=== PATIENT | male | born 1950 | race Caucasian/White ===

== ENCOUNTER 2017-10-25 03:36 | Observation (INO) ==
--- NOTE | 2017-10-25 04:32 | Emergency Department Note ---
Disposition Clinical Impression: NSTEMI (non-ST elevated myocardial infarction), Seizure Head trauma Qualifiers: Encounter type: initial encounter Qualified Code(s): S09.90XA - Unspecified injury of head, initial encounter Disposition: Admitted As Inpatient Condition: Fair Referrals: NONE,PCP [Primary Care Provider] - Forms: ED Satisfaction Letter General Adult HPI - General Chief complaint: ED Chest Pain Stated complaint: mult complaints Time Seen by Provider: 10/25/17 03:41 Source: patient Limitations: no limitations Nursing Notes Reviewed: Yes Vital Signs Reviewed: Yes - History of Present Illness HPI Narrative: 67-year-old male presents to the emergency department with concern for left- sided chest pain started a few hours ago. Patient states that he also feels a radiating to the left arm. Patient cannot characterize the pain, however, he states it is not a stabbing type pain. Patient states he has never felt this before. Patient has past history of smoking and hyperlipidemia. Patient denies any nausea, vomiting, diaphoresis. Patient also reports having seizure-like activity yesterday. He had 2 episodes. Patient states that he has a seizure disorder and consistently takes his medications. Patient states that he has been about half a year without seizure. Patient states that he does not really remember what happened, however , he does report bruising to his left eye. Patient states he had one seizure today. Pain Scale: 10 - Related Data Home Medications Medication Instructions Recorded Confirmed Divalproex (24 HR) [Depakote ER 1,000 mg PO DAILY 06/15/16 06/15/16 (24 HR)] Previous Rx's Medication Instructions Recorded Clindamycin [Cleocin] 150 mg PO Q6HR #8 capsule 06/15/16 OxyCODONE Immed Rel [Roxicodone 5 5 mg PO Q6HR PRN #30 tablet 06/15/16 MG] Allergies Allergy/AdvReac Type Severity Reaction Status Date / Time codeine AdvReac Hives Verified 06/15/16 09:37 All systems ED: reviewed and negative except as stated. Review of Systems: As Per HPI Constitutional: Denies: fever Cardiovascular: Reports: chest pain Respiratory: Denies: cough Gastrointestinal: Denies: abdominal pain, nausea, vomiting Genitourinary: Denies: urgency, dysuria, frequency Musculoskeletal: Denies: back pain Integumentary: Denies: rash, abrasion Neurological: Denies: headache, weakness, numbness, paresthesias Psychiatric: Denies: anxiety Past Medical History - Past Medical History Medical history: Reports: COPD, hyperlipidemia, hypertension, seizures Psychiatric history: Reports: no psych history - Social History Smoking Status: Current every day smoker Smokeless Tobacco Status: No Alcohol use: Reports: occasionally Drug use: Reports: marijuana Physical Exam - General Limitations: no limitations General appearance: alert, in no apparent distress - Head Head exam: normocephalic, other (Left orbital area has ecchymosis and bruising) - Eye Eye exam: Present: EOMI. Absent: scleral icterus - ENT ENT exam: normal oropharynx, mucous membranes moist - Neck Neck exam: Present: trachea midline - Chest Chest inspection: Present: normal inspection, symmetric chest wall rise - Respiratory Respiratory exam: Present: normal lung sounds bilaterally. Absent: respiratory distress, wheezes, stridor, accessory muscle use - Cardiovascular Cardiovascular exam: Present: regular rate, normal rhythm, normal heart sounds - Abdominal Exam Abdominal exam: Present: soft, Non-Tender. Absent: distention, guarding, rebound - Extremities Exam Extremities exam: Present: full ROM, normal capillary refill. Absent: tenderness - Back Exam Back exam: Present: normal inspection, full ROM - Neurological Exam Neurological exam: Present: alert, oriented X3, CN II-XII intact - Psychiatric Psychiatric exam: Present: normal affect, normal mood - Skin Skin exam: Present: warm, dry, intact Course Vital Signs Temperature 97.6 F 10/25/17 03:38 Pulse Rate 72 10/25/17 03:38 Respiratory Rate 20 10/25/17 03:38 Blood Pressure 186/80 10/25/17 03:38 O2 Sat by Pulse Oximetry 96 10/25/17 03:38 Temperature 97.6 F 10/25/17 03:42 Pulse Rate 73 10/25/17 05:53 Respiratory Rate 16 10/25/17 05:53 Blood Pressure 163/72 10/25/17 05:53 O2 Sat by Pulse Oximetry 95 10/25/17 05:53 Oxygen Delivery Oxygen Delivery Room Air Medical Decision Making - MDM Narrative Medical decision making narrative: 67-year-old male presents to the emergency department with concern for both chest pain and seizures. Patient had elevated troponin 0.04. He had mild ST depressions of less than 0.5 mm. Patient was given aspirin here, given sublingual nitroglycerin which helped his chest pain some. Patient was hypertensive at 186/80. Chest x-ray that was obtained was normal. We also obtained a facial CT, head CT, cervical spine CT from the patient's unwitnessed fall. These are within normal limits. Cardiology was called and Dr. Cat was spoken to regarding the patient's care. He was okay with us starting low-dose heparin via ACS protocol as well as a nitroglycerin drip. This will also help out with patient's high blood pressure. Patient agreed with plan for admission. I spoke with the hospitalist and he agreed to accept the patient. We have placed seizure precautions on the patient at this time. I have Ativan IM on an as-needed basis in case the patient seizes again. Chest X-Ray 10/25/17 04:12 IMPRESSION: Negative portable chest. D/ / Holden So MD / Holden So MD Interpreting Provider: Holden So MD Cervical Spine CT 10/25/17 04:29 IMPRESSION: Spondylosis with no definite fracture. D/ / Holden So MD / Holden So MD Interpreting Provider: Holden So MD Face CT 10/25/17 04:29 IMPRESSION: Facial bones: Left facial subcutaneous soft tissue swelling without fracture. Brain: No acute intracranial abnormality. D/ / Holden So MD / Holden So MD Interpreting Provider: Holden So MD Head CT 10/25/17 04:29 IMPRESSION: Facial bones: Left facial subcutaneous soft tissue swelling without fracture. Brain: No acute intracranial abnormality. D/ / Holden So MD / Holden So MD Interpreting Provider: Holden So MD Vital Signs Temperature 97.6 F 10/25/17 03:38 Pulse Rate 72 10/25/17 03:38 Respiratory Rate 20 10/25/17 03:38 Blood Pressure 186/80 10/25/17 03:38 O2 Sat by Pulse Oximetry 96 10/25/17 03:38 Temperature 97.6 F 10/25/17 03:42 Pulse Rate 73 10/25/17 05:53 Respiratory Rate 16 10/25/17 05:53 Blood Pressure 163/72 10/25/17 05:53 O2 Sat by Pulse Oximetry 95 10/25/17 05:53 Oxygen Delivery Oxygen Delivery Room Air - Lab Data Result diagrams: 10/25/17 04:22 10/25/17 04:22 Lab Results 10/25/17 10/25/17 10/25/17 Range/Units 03:48 04:12 04:22 WBC 12.9 H (4.3-11.1) K/mcL RBC 4.70 (4.19-5.50) M/mcL Hgb 15.8 (12.9-16.9) g/dL Hct 44.5 (37.5-50.1) % MCV 94.7 (83.0-100.0) fL MCH 33.6 H (28.0-33.3) pg MCHC 35.5 (31.6-35.5) g/dL RDW 12.6 (11.5-14.5) % Plt Count 252 (140-400) K/mcL MPV 10.3 (9.4-12.4) fL Immature Gran % 0.2 (0-4) % Seg Neutrophils % 54.2 % Lymphocytes % 35.7 % Monocytes % 8.9 % Eosinophils % 0.5 % Basophils % 0.5 % Neutrophils # 7.0 (1.6-8.9) K/mcL Lymphocytes # 4.6 (0.6-4.6) K/mcL Monocytes # 1.1 (0.0-1.3) K/mcL Eosinophils # 0.1 (0.0-0.6) K/mcL Basophils # 0.1 (0.0-0.2) K/mcL PT 11.1 (9.4-12.1) Seconds INR 1.0 APTT 29.4 (26.0-36.0) Seconds D-Dimer 576 H (0-500) ng/mLFEU Sodium (136-145) mEq/L Potassium (3.5-5.1) mEq/L Chloride (98-107) mEq/L Carbon Dioxide (23-29) mEq/L BUN (8-23) mg/dL Creatinine (0.70-1.30) mg/dL Est GFR ( Amer) (> 60) Est GFR (Non-Af Amer) (> 60) BUN/Creatinine Ratio (6-26) Glucose (70-105) mg/dL Calculated Osmolality (280-300) Calcium (8.6-10.3) mg/dL Creatine Kinase (30-223) Units/L Troponin I (< 0.04) ng/mL B-Natriuretic Peptide 93 (Less than 100) pg/mL 10/25/17 Range/Units 04:22 WBC (4.3-11.1) K/mcL RBC (4.19-5.50) M/mcL Hgb (12.9-16.9) g/dL Hct (37.5-50.1) % MCV (83.0-100.0) fL MCH (28.0-33.3) pg MCHC (31.6-35.5) g/dL RDW (11.5-14.5) % Plt Count (140-400) K/mcL MPV (9.4-12.4) fL Immature Gran % (0-4) % Seg Neutrophils % % Lymphocytes % % Monocytes % % Eosinophils % % Basophils % % Neutrophils # (1.6-8.9) K/mcL Lymphocytes # (0.6-4.6) K/mcL Monocytes # (0.0-1.3) K/mcL Eosinophils # (0.0-0.6) K/mcL Basophils # (0.0-0.2) K/mcL PT (9.4-12.1) Seconds INR APTT (26.0-36.0) Seconds D-Dimer (0-500) ng/mLFEU Sodium 138 (136-145) mEq/L Potassium 4.1 (3.5-5.1) mEq/L Chloride 105 (98-107) mEq/L Carbon Dioxide 24 (23-29) mEq/L BUN 16 (8-23) mg/dL Creatinine 1.04 (0.70-1.30) mg/dL Est GFR ( Amer) > 60 (> 60) Est GFR (Non-Af Amer) > 60 (> 60) BUN/Creatinine Ratio 15 (6-26) Glucose 102 (70-105) mg/dL Calculated Osmolality 287 (280-300) Calcium 10.3 (8.6-10.3) mg/dL Creatine Kinase 188 (30-223) Units/L Troponin I 0.04 H* (< 0.04) ng/mL B-Natriuretic Peptide (Less than 100) pg/mL - Radiology Data Radiology results reviewed: Yes I reviewed the patient's radiology results. - EKG Data EKG #1 EKG attestation: Yes I reviewed and interpreted this EKG. EKG results narrative: Made T2017. 3:47 Ventricular rate 79 bpm, PA interval 169 ms, QRS duration 90 ms, QT 355 ms, QTC 389 ms, right axis deviation. Sinus rhythm with a ventricular rate of 79 bpm. There are mild ST depressions of less than 0.5 mm in the lateral leads V5 and V6. These are new from a previous electrocardiogram performed on September 03, 2015.
[2017-10-25] MEDS ORDERED: Nitroglycerin 0.4 MG TAB.SUBL SL PRN (04:47)
[2017-10-25 04:54] LABS: Basophils # 0.1 K/mcL (0.0-0.2); Basophils % 0.5 %; Eosinophils # 0.1 K/mcL (0.0-0.6); Eosinophils % 0.5 %; Hematocrit 44.5 % (37.5-50.1); Hemoglobin 15.8 g/dL (12.9-16.9); Immature Granulocytes % 0.2 % (0-4); Lymphocytes # 4.6 K/mcL (0.6-4.6); Lymphocytes % 35.7 %; Mean Corpuscular HGB Conc 35.5 g/dL (31.6-35.5); Mean Corpuscular Hemoglobin 33.6 pg (28.0-33.3); Mean Corpuscular Volume 94.7 fL (83.0-100.0); Mean Platelet Volume 10.3 fL (9.4-12.4); Monocytes # 1.1 K/mcL (0.0-1.3); Monocytes % 8.9 %; Platelet Count 252 K/mcL (140-400); Red Cell Distribution Width 12.6 % (11.5-14.5); Segmented Neutrophils % 54.2 %
[2017-10-25 04:59] LABS: Prothrombin Time 11.1 Seconds (9.4-12.1)
[2017-10-25 05:03] LABS: Activated Partial Thrombo Time 29.4 Seconds (26.0-36.0)
[2017-10-25 05:10] LABS: BUN/Creatinine Ratio 15 (6-26); Blood Urea Nitrogen 16 mg/dL (8-23); Calcium 10.3 mg/dL (8.6-10.3); Carbon Dioxide 24 mEq/L (23-29); Chloride 105 mEq/L (98-107); Glucose 102 mg/dL (70-105); Osmolality,Calculated 287 (280-300); Potassium 4.1 mEq/L (3.5-5.1); Sodium 138 mEq/L (136-145); eGFR For African Americans > 60 (> 60); eGFR For Non-African Americans > 60 (> 60)
[2017-10-25 05:18] LABS: Creatine Kinase 188 Units/L (30-223)
[2017-10-25 05:24] LABS: Troponin I 0.04 ng/mL (< 0.04)
[2017-10-25] MEDS ORDERED: Aspirin 325 MG TABLET PO ONE (05:27)
[2017-10-25] MEDS ORDERED: *HR* Heparin 5,000 UNIT/ML VIAL IVP PRN ×2 (05:30)
[2017-10-25] MEDS ORDERED: Heparin 25,000 UNIT/500 ML D5W 25,000 UNIT/500 ML BAG IVC SCH (05:30)
[2017-10-25] MEDS ORDERED: *HR* Heparin 5,000 UNIT/ML VIAL IVP ONE (05:30)
[2017-10-25] MEDS ORDERED: Nitroglycerin 25 MG/250 ML INFUS..BTL IVC SCH (05:45)
[2017-10-25] MEDS ORDERED: *HR* LORazepam 2 MG/ML VIAL IVP PRN (06:05)
[2017-10-25 06:20] LABS: Hematocrit 41.6 % (37.5-50.1); Hemoglobin 14.7 g/dL (12.9-16.9); Mean Corpuscular HGB Conc 35.3 g/dL (31.6-35.5); Mean Corpuscular Hemoglobin 33.4 pg (28.0-33.3); Mean Corpuscular Volume 94.5 fL (83.0-100.0); Mean Platelet Volume 10.1 fL (9.4-12.4); Platelet Count 233 K/mcL (140-400); Red Cell Distribution Width 12.5 % (11.5-14.5)
[2017-10-25 06:29] LABS: INR 1.1; Prothrombin Time 11.9 Seconds (9.4-12.1)
--- NOTE | 2017-10-25 06:42 | Emergency Department Note ---
Disposition Clinical Impression: NSTEMI (non-ST elevated myocardial infarction), Seizure Head trauma Qualifiers: Encounter type: initial encounter Qualified Code(s): S09.90XA - Unspecified injury of head, initial encounter Disposition: Admitted As Inpatient Condition: Fair Referrals: NONE,PCP [Primary Care Provider] - General Adult HPI - General Chief complaint: ED Chest Pain Stated complaint: mult complaints Time Seen by Provider: 10/25/17 03:41 Source: patient Limitations: no limitations Nursing Notes Reviewed: Yes Vital Signs Reviewed: Yes - History of Present Illness Pain Scale: 2 - Related Data Home Medications Medication Instructions Recorded Confirmed Divalproex (24 HR) [Depakote ER 1,000 mg PO DAILY 06/15/16 06/15/16 (24 HR)] Allergies Allergy/AdvReac Type Severity Reaction Status Date / Time codeine AdvReac Hives Verified 06/15/16 09:37 Constitutional: Denies: fever Cardiovascular: Reports: chest pain Respiratory: Denies: cough Gastrointestinal: Denies: abdominal pain, nausea, vomiting Genitourinary: Denies: urgency, dysuria, frequency Musculoskeletal: Denies: back pain Integumentary: Denies: rash, abrasion Neurological: Denies: headache, weakness, numbness, paresthesias Psychiatric: Denies: anxiety Past Medical History - Past Medical History Medical history: Reports: COPD, hyperlipidemia, hypertension, seizures Psychiatric history: Reports: no psych history - Social History Smoking Status: Current every day smoker Smokeless Tobacco Status: No Alcohol use: Reports: occasionally Drug use: Reports: marijuana Physical Exam - General Limitations: no limitations General appearance: alert, in no apparent distress Course Vital Signs Temperature 97.6 F 10/25/17 03:38 Pulse Rate 72 10/25/17 03:38 Respiratory Rate 20 10/25/17 03:38 Blood Pressure 186/80 10/25/17 03:38 O2 Sat by Pulse Oximetry 96 10/25/17 03:38 Temperature 97.6 F 10/25/17 03:42 Pulse Rate 73 10/25/17 05:53 Respiratory Rate 20 10/25/17 06:27 Blood Pressure 149/80 10/25/17 06:27 O2 Sat by Pulse Oximetry 95 10/25/17 05:53 Oxygen Delivery Oxygen Delivery Room Air Medical Decision Making - Lab Data Result diagrams: 10/25/17 06:03 10/25/17 04:22 Lab Results 10/25/17 10/25/17 10/25/17 Range/Units 03:48 04:12 04:22 WBC 12.9 H (4.3-11.1) K/mcL RBC 4.70 (4.19-5.50) M/mcL Hgb 15.8 (12.9-16.9) g/dL Hct 44.5 (37.5-50.1) % MCV 94.7 (83.0-100.0) fL MCH 33.6 H (28.0-33.3) pg MCHC 35.5 (31.6-35.5) g/dL RDW 12.6 (11.5-14.5) % Plt Count 252 (140-400) K/mcL MPV 10.3 (9.4-12.4) fL Immature Gran % 0.2 (0-4) % Seg Neutrophils % 54.2 % Lymphocytes % 35.7 % Monocytes % 8.9 % Eosinophils % 0.5 % Basophils % 0.5 % Neutrophils # 7.0 (1.6-8.9) K/mcL Lymphocytes # 4.6 (0.6-4.6) K/mcL Monocytes # 1.1 (0.0-1.3) K/mcL Eosinophils # 0.1 (0.0-0.6) K/mcL Basophils # 0.1 (0.0-0.2) K/mcL PT 11.1 (9.4-12.1) Seconds INR 1.0 APTT 29.4 (26.0-36.0) Seconds D-Dimer 576 H (0-500) ng/mLFEU Sodium (136-145) mEq/L Potassium (3.5-5.1) mEq/L Chloride (98-107) mEq/L Carbon Dioxide (23-29) mEq/L BUN (8-23) mg/dL Creatinine (0.70-1.30) mg/dL Est GFR ( Amer) (> 60) Est GFR (Non-Af Amer) (> 60) BUN/Creatinine Ratio (6-26) Glucose (70-105) mg/dL Calculated Osmolality (280-300) Calcium (8.6-10.3) mg/dL Creatine Kinase (30-223) Units/L Troponin I (< 0.04) ng/mL B-Natriuretic Peptide 93 (Less than 100) pg/mL 10/25/17 10/25/17 Range/Units 04:22 06:03 WBC 12.4 H (4.3-11.1) K/mcL RBC 4.40 (4.19-5.50) M/mcL Hgb 14.7 (12.9-16.9) g/dL Hct 41.6 (37.5-50.1) % MCV 94.5 (83.0-100.0) fL MCH 33.4 H (28.0-33.3) pg MCHC 35.3 (31.6-35.5) g/dL RDW 12.5 (11.5-14.5) % Plt Count 233 (140-400) K/mcL MPV 10.1 (9.4-12.4) fL Immature Gran % (0-4) % Seg Neutrophils % % Lymphocytes % % Monocytes % % Eosinophils % % Basophils % % Neutrophils # (1.6-8.9) K/mcL Lymphocytes # (0.6-4.6) K/mcL Monocytes # (0.0-1.3) K/mcL Eosinophils # (0.0-0.6) K/mcL Basophils # (0.0-0.2) K/mcL PT (9.4-12.1) Seconds INR APTT (26.0-36.0) Seconds D-Dimer (0-500) ng/mLFEU Sodium 138 (136-145) mEq/L Potassium 4.1 (3.5-5.1) mEq/L Chloride 105 (98-107) mEq/L Carbon Dioxide 24 (23-29) mEq/L BUN 16 (8-23) mg/dL Creatinine 1.04 (0.70-1.30) mg/dL Est GFR ( Amer) > 60 (> 60) Est GFR (Non-Af Amer) > 60 (> 60) BUN/Creatinine Ratio 15 (6-26) Glucose 102 (70-105) mg/dL Calculated Osmolality 287 (280-300) Calcium 10.3 (8.6-10.3) mg/dL Creatine Kinase 188 (30-223) Units/L Troponin I 0.04 H* (< 0.04) ng/mL B-Natriuretic Peptide (Less than 100) pg/mL Attestation Statement - Attestation Attestation: I, Marcelo Moreno, examined this patient and my medical decision-making was reviewed with the DIRECTOR OF DEVELOPMENT AND MARKETING/PA/Advanced Practice Nurse/Resident Physician. I agree with the documented findings, disposition and treatment plan as described except to the extent set forth below. 67-year-old male presents emergency Department for evaluation of his seizures as well as chest pain. Patient states he had been seizure-free for multiple months however he had periods of unconsciousness over the past 2-3 days. Patient is unable to recall this event surrounding his loss of consciousness. He does state that it was similar to his previous seizures in that he was incontinent of urine. Patient has multiple contusions to his face. Patient is unable to tell us the name of his seizure medication however he states he has not missed any doses. Per the medical record, he takes Depakote. Patient reports intermittent aching in the center of his chest. Initial troponin was elevated at 0.04 with negative troponins in the past. EKG shows normal sinus rhythm with rate of 79. Patient will be admitted to the hospital for further care and evaluation.
[2017-10-25 07:00] LABS: Valproate 34 mcg/mL (50-100)
[2017-10-25] MEDS ORDERED: Isovue-370 500 ML INFUS..BTL IV ONE (08:30)
[2017-10-25] MEDS ORDERED: Naloxone 0.4 MG/ML INJ IVP PRN (08:35)
[2017-10-25] MEDS ORDERED: Aspirin 325 MG TABLET PO PRN (08:41)
--- NOTE | 2017-10-25 08:57 | Internal Med History&Physical ---
Date of Encounter: 10/25/17 Time of Encounter: 08:45 Internal Medicine - H&P: HPI Chief complaint: Chest pain, seizure Admitted From: Home Plans for Post Hospital Care: Home History of present illness: Mr. Sherman is a 67 year old male with history of chronic seizure on Depakote did not see a neurologist for a while but seen here in [facility] but forgot the name, hyperlipidemia chronic smoker one and half pack per day for 50 years never had any cardiac history or evaluation in the past came to emergency room for evaluation of left-sided chest pain is started a few days ago but very mild therefore he did not be attention but it got worse a few hours before coming to ER and also radiating to the left arm. He is unable to rate the pain but describes a stabbing type in nature and not associated with nausea and lightheadedness diaphoresis vomiting shortness of breath palpitation. He also has seizure-like activity two episode yesterday but not witnessed. Patient takes Depakote and did not miss any medication . Patient had been seizure-free for multiple months however he had periods of unconsciousness associated with seizure activity in last 2 days. Because of seizure he fell and hit the head and shoulder . In the ER CT head and face and a spine with no acute finding, troponin 0.04 mildly elevated, ST depression in V5 V6 with active chest pain therefore ER physician called on-call anthropology and archeology instructor Dr. Wong and started low dose heparin protocol. Aspirin and nitroglycerin Tablet was also given and eventually started on nitro drip. ER physician called on-call hospitalists for the admission with the diagnosis of NST MN, seizure evaluation. Patient did not had any active seizure activity during my evaluation and is still no relief in chest pain rating 5 x 10 while on nitro and heparin drip. Patient is poor historian and does not remember a few things and I do not know his baseline. Patient denies fever, chills, nausea, vomiting, dizziness, short of breath, abdominal pain, urinary complaint. He has history of chronic migraine. Patient complained of left shoulder pain is started after getting hit during the fall yesterday. He has chronic left shoulder pain but now worse and also intermittent tingling but no weakness Past Med Surg Social Fam HX - Past Medical History Medical history: COPD, hyperlipidemia, hypertension, seizures Psychiatric history: no psych history - Past Surgical History Surgical History: herniorrhaphy, orthopedic, other - Social History Smoking Status: Current every day smoker Smokeless Tobacco Status: No Alcohol use: occasionally Drug use: marijuana Internal Medicine - H&P: Meds Divalproex (24 HR) [Depakote ER (24 HR)] 500 mg PO BID 06/15/16 [History] Aspirin 325 mg PO DAILY PRN 10/25/17 [History] 3 Allergy/AdvReac Type Severity Reaction Status Date / Time codeine AdvReac Hives Verified 10/25/17 06:38 All Systems PM: as documented above in the HPI. - Constitutional Vitals: Temp Pulse Resp BP Pulse Ox 98.0 F 69 20 166/75 94 10/25/17 07:45 10/25/17 08:02 10/25/17 08:02 10/25/17 08:02 10/25/17 08:02 Exam: General appearance: No acute distress, A&O X 3. Poor historian. Has slight difficulty in recalling the events Head exam: left orbital area -ecchymosis and bruising Eye exam: EOMI, PERRLA ENT exam: Moist oral mucosa Neck nontender, supple Respiratory exam: Diffuse rhonchi bilaterally(questionable COPD history but does not take any breathing treatment) Cardiovascular exam: Regular rate and rhythm, no systolic murmur Abdominal exam: Soft, nontender, nondistended, positive bowel sounds Extremities exam: No calf tenderness, no pedal edema Present. Motor 5 x 5 in all 4 extremities. Slight tender left shoulder anteriorly. Pulses palpable equally Skin-no rash, warm, dry, intact Neurological exam: Alert, awake, oriented 3, CN II-XII intact, no focal deficits. No facial droop. No slurred speech. Internal Med - H&P Results - Labs CBC & Chem 7: 10/25/17 06:03 10/25/17 04:22 - Assessment and plan (1) NSTEMI (non-ST elevated myocardial infarction) Current Visit: Yes Status: Acute Assessment and plan: Still active chest pain. Slight elevation of troponin and change in EKG as mentioned. Continue aspirin, statin, nitro drip, oxygen, heparin drip. Desktop Support Associate's consulted. Patient needs ischemic workup.There are also high d- dimer therefore CT angiogram ordered to rule out PE (2) D-dimer, elevated Current Visit: Yes Status: Acute Assessment and plan: Rule out PE. CT angiogram ordered. If positive then will change to pulmonary weight-based heparin. (3) Seizure Current Visit: Yes Status: Acute Assessment and plan: No active seizure Since admission. Seizure, aspiration and fall precaution. Neuro check. Subtherapeutic valproic acid level. Consulted neurologists who advised to increase Depakote level 1000 mg in the morning and 500 mg in the evening. (4) COPD (chronic obstructive pulmonary disease) Current Visit: Yes Status: Chronic Assessment and plan: No acute exacerbation. Never got evaluated. Will restart DuoNeb as needed. Smoking cessation education. Oxygen when necessary. Qualifiers: COPD type: unspecified COPD Qualified Code(s): J44.9 - Chronic obstructive pulmonary disease, unspecified (5) Left shoulder pain Current Visit: Yes Status: Acute Assessment and plan: Patient had acute on chronic left shoulder pain. He had history of. But after having fall yesterday. Hit left shoulder and pain aggravated therefore x-ray ordered. Will consider MRI if needed. Qualifiers: Chronicity: unspecified Qualified Code(s): M25.512 - Pain in left shoulder (6) DVT prophylaxis Current Visit: Yes Status: Acute Assessment and plan: Continue heparin drip - Time Spent With Patient Total time spent is greater than 50% in coordination of care (as documented) at patient's floor/unit and/or counseling patient: 25 - 35 minutes
[2017-10-25] MEDS ORDERED: Valproic Acid 250 MG CAPSULE PO SCH ×2 (09:15→17:00)
[2017-10-25] MEDS ORDERED: Ipratropium/Albuterol Neb 3 ML IH PRN (09:18)
[2017-10-25] MEDS: Divalproex (24 HR) 500 MG TABLET PO SCH ×2 (09:56→19:55)
[2017-10-25] MEDS: Valproic Acid 250 MG CAPSULE PO SCH (09:56)
--- NOTE | 2017-10-25 10:02 | Cardiology Consult Note ---
<Tala Fay - Last Filed: 10/25/17 10:12> Date of Encounter: 10/25/17 Time of Encounter: 09:15 Assessment and Plan (1) Elevated troponin Current Visit: Yes Status: Acute Per cardiology: -Troponin 0.04 in the setting of seizures, HTN. -Reports chest pain yesterday, denies current. -Reports self medicates at home with marijuana for pain and seizures. -ECG with no acute ischemic changes. -08/2015 Stress test with possible abnormality. -08/2015 TTE with LVEF 55-60%, mild DD, no segmental wall motion abnormalities. -TTE pending. -ON heparin drip and nitro drop at 5mcg/min, statin, ASA 325mg. -DO not suspect NSTEMI as this time, suspect demand ischemia related to above. However, recommend continuing to trend troponins. -Continue heparin and nitro drips. -WIll add BB, ASA 81mg. Stop ASA 325mg. -Further recommendations pending TTE, troponin trend. -OF note, patient reports no matter what testing/lab work shows, he would not be agreeable to any invasive procedures. Also patient states he wants to leave AMA-will notify primary service. Discussion w patient/family: The assessment and plan as outlined above was discussed with the patient who expressed understanding and agreement. All questions were answered. Thank you for involving us in the care of your patient. Please call with any questions. Discussed and reviewed with . History of Present Illness Consult date: 10/25/17 Requesting physician: Alonzo Palafox Consult reason: NSTEMI Chief complaint: chest pain, seizures History of present illness: Mr. Sherman is a 67 year old male with a relevant past medical history of seizures, COPD, HTN, HLD, tobacco abuse, and marijuana abuse. Patient presented to [facility] with complaints of increased seizures and chest pain. Patient reports he knows he has had at least 3 seizures over the past 24 hours. Also states has had intermittent chest pain for " a while." States he has had chest pain since yesterday. Deneis aggravating or alleviating factors. Describes as "tightness." Unable to tell me if chest pain is exertional. Patient states he uses marijuana to control seizures and chest pain at home. Denies shortness of breath. Denies increased fatigue. Past Med Surg Social Fam HX - Past Medical History Attestation: Yes The following information was validated with the patient. Source: patient, old records reviewed Medical history: COPD, hyperlipidemia, hypertension, seizures Psychiatric history: no psych history - Past Surgical History Surgical History: herniorrhaphy, orthopedic, other - Social History Smoking Status: Current every day smoker Smokeless Tobacco Status: No Alcohol use: occasionally Drug use: marijuana Medications and Allergies Divalproex (24 HR) [Depakote ER (24 HR)] 500 mg PO BID 06/15/16 [History] Aspirin 325 mg PO DAILY PRN 10/25/17 [History] 3 Allergy/AdvReac Type Severity Reaction Status Date / Time codeine AdvReac Hives Verified 10/25/17 06:38 All Systems Review: The remainder of the systems were reviewed and are negative - Cardiovascular Cardiovascular: as per HPI, chest pain at rest, other - Neurological Neurological: other (seizures) Physical Examination Vital Signs, Last 4 Hours Temp Pulse Resp BP Pulse Ox 10/25/17 08:02 69 20 166/75 94 10/25/17 07:45 98.0 F 60 21 146/79 94 10/25/17 07:00 20 126/72 General: Conversant, No Apparent Distress HEENT: Atraumatic, Normocephaly, Mucus Membranes Moist Neck: No JVD, Normal carotid pulses Cardiac: Reg Rate and Rhythm, Normal S1 and S2, No Murmur Lungs: Normal Breath Sounds, No Wheeze, Rales, Rhonchi Neuro: Alert and responsive, No focal deficits noted Abdomen: Soft, Non-Tender Skin: No rashes noted on visualized skin Musculoskeletal: No Chest Wall Tenderness Extremities: No Clubbing, No Cyanosis, No Edema, Normal Pulses Results 10/25/17 06:03 10/25/17 04:22 Lab Results Impressions Chest X-Ray 10/25/17 04:12 IMPRESSION: Negative portable chest. D/ / Holden So MD / Holden So MD Interpreting Provider: Holden So MD Cervical Spine CT 10/25/17 04:29 IMPRESSION: Spondylosis with no definite fracture. D/ / Holden So MD / Holden So MD Interpreting Provider: Holden So MD Face CT 10/25/17 04:29 IMPRESSION: Facial bones: Left facial subcutaneous soft tissue swelling without fracture. Brain: No acute intracranial abnormality. D/ / Holden So MD / Holden So MD Interpreting Provider: Holden So MD Head CT 10/25/17 04:29 IMPRESSION: Facial bones: Left facial subcutaneous soft tissue swelling without fracture. Brain: No acute intracranial abnormality. D/ / Holden So MD / Holden So MD Interpreting Provider: Holden So MD Shoulder X-Ray 10/25/17 08:27 IMPRESSION: 1. No acute osseous abnormality of the left shoulder. 2. Status post rotator cuff repair. 3. Mild degenerative changes of the AC joint. D/ / Edgard Chávez MD / Edgard Chávez MD Interpreting Provider: Edgard Chávez MD Active Medications Albuterol/Ipratropium (Duoneb) 3 ml IH [id number] PRN PRN Reason: Shortness Of Breath/Wheezing Stop: 04/26/18 09:19 Aspirin (Aspirin) 325 mg PO DAILY PRN PRN Reason: Migraine Headache Stop: 04/26/18 08:42 Atorvastatin Calcium (Lipitor) 20 mg PO HS LEONARDO Stop: 04/26/18 21:01 Divalproex Sodium (Depakote Er (24 Hr)) 500 mg PO BID LEONARDO Stop: 04/26/18 09:01 Last Admin: 10/25/17 09:56 Dose: 500 mg Heparin Sodium (Porcine) (Heparin) 4,000 unit IVP Q6HR PRN PRN Reason: SEE COMMENTS Stop: 04/26/18 05:31 Heparin Sodium (Porcine) (Heparin) 2,000 unit IVP Q6H PRN PRN Reason: SEE COMMENTS Stop: 04/26/18 05:31 Heparin Sodium/Dextrose (Heparin 25,000 Unit/500 Ml D5w) 25,000 unit in 500 mls @ 19.958 mls/hr IVC .Q24H LEONARDO; 11 UNIT/KG/HR PRN Reason: Protocol Stop: 04/26/18 05:31 Last Admin: 10/25/17 05:41 Dose: 11 unit/kg/hr, 19.958 mls/hr Nitroglycerin (Nitroglycerin Premix 25 Mg/250 Ml) 25 mg in 250 mls @ 3 mls/hr IVC .Q24H LEONARDO; 5 MCG/MIN PRN Reason: Protocol Stop: 04/26/18 05:46 Last Admin: 10/25/17 05:43 Dose: 5 mcg/min, 3 mls/hr Lorazepam (Ativan) 2 mg IVP ONCE PRN PRN Reason: Seizure Activity Stop: 04/26/18 06:06 Naloxone HCl (Narcan) 0.4 mg IVP Q2MIN PRN PRN Reason: SEE COMMENTS Stop: 04/26/18 08:36 Nitroglycerin (Nitroglycerin) 0.4 mg SL Q5MIN PRN PRN Reason: Chest Pain Stop: 04/26/18 04:48 Last Admin: 10/25/17 05:06 Dose: 0.4 mg Valproic Acid (Depakene) 250 mg PO 1700 [facility] Stop: 04/26/18 17:01 Valproic Acid (Depakene) 500 mg PO 0800 [facility] Stop: 04/26/18 09:16 Last Admin: 10/25/17 09:56 Dose: 500 mg Laboratory Tests 10/25/17 10/25/17 04:22 04:22 WBC 12.9 H Hgb 15.8 Creatinine 1.04 Troponin I 0.04 H* - Imaging and Cardiology Chest Xray: report reviewed Stress Test: report reviewed Echo: pending, report reviewed - EKG Interpretation EKG results cardiology: personally reviewed (ECG with SR, HR 79.) Consult Discharge Plan - Plan Referrals: Fan Padgett [Partnered Physician] - 11/01/17 11:00 am (Please take the packet they mail you filled out to your appointment. Please show up 15 minutes early, take you picture ID, Insurance card, and a list of medication with you to your appointment including over the counter meds. Take your discharge instructions to your appointment. If you need to cancel please call [phone] with in 24 hours of your appointment.) <Henrietta Mejía - Last Filed: 10/25/17 15:57> Date of Encounter: 10/25/17 - Attending Attestation I have personally performed a face to face evaluation on this patient. I have reviewed and agree with the care plan. History and Exam by me shows: 67 YOM with abnormal stress test 2016 here after multiple seizures found to have mild elevated trop, echo pending for risk stratification. On and off chest pain atypical on nitro drip now. Consider stress test or LHC depending on findings of ECHO. Assessment and Plan Discussion w patient/family: The assessment and plan as outlined above was discussed with the patient and/or family members who expressed understanding and agreement. All questions were answered. Thank you for involving us in the care of your patient. Please call with any questions. History of Present Illness History of present illness: Mr. Sherman is a 67 year old male All Systems Review: The remainder of the systems were reviewed and are negative Physical Examination Vital Signs, Last 4 Hours Pulse BP Pulse Ox 10/25/17 14:00 61 150/72 92 Results 10/25/17 06:03 10/25/17 04:22 Lab Results 10/25/17 10/25/17 10/25/17 08:29 08:29 14:17 APTT 95.5 H D Troponin I 0.04 H* 0.03 TSH 3.379
[2017-10-25 10:17] LABS: Ethanol < 10 mg/dL (Less than 10); Thyroid Stimulating Hormone 3.379 mcIU/mL (0.340-5.600); Troponin I 0.04 ng/mL (< 0.04)
[2017-10-25 10:30] LABS: Amphetamine Screen,Urine Negative ng/mL (Cutoff=1000); Barbiturate Screen,Urine Negative ng/mL (Cutoff=200); Benzodiazepines Screen,Urine Negative ng/mL (Cutoff=200); Cannabinoid Screen,Urine Positive ng/mL (Cutoff = 50); Cocaine Screen,Urine Negative ng/mL (Cutoff= 300); Opiate Screen,Urine Negative ng/mL (Cutoff=300); Phencyclidine Screen,Urine Negative ng/mL (Cutoff=25)
--- NOTE | 2017-10-25 14:24 | Neurology - Consult Note ---
Date of Encounter: 10/25/17 Time of Encounter: 14:20 Assessment and Plan (1) Seizure Current Visit: Yes Status: Acute Patient with known seizure disorder, developed recurrent seizure with loss of consciousness, facial injury and urinary incontinence. CT of head shows no acute intracranial abnormality. Non focal neurological examination. No further testing necessary. Will keep him on Depakote DR 500mg tid and follow up with Dr. Jackson in neurology clinic in 2-3 weeks after discharge. Patient can be discharged home from neurology perspective. Please call if any questions. Total time spent on this case is approximately 50 minutes History of Present Illness Chief complaint: seizure HPI: Mr. Sherman is a 67 year old male with PMH significant for seizure disorder who developed a recurrent seizure, associated with urinary incontinence, loss of consciousness and facial injury. Has seizures since last 10 years, not sure what was the cause. No prior history of alcoholism. Does smoke Marijuana. Had one seizure withing last 2 years. Used to see Dr. Jackson last seen 2015. Been taking Depakote DR 500mg bid but level was 34 subtherapeutic. Seizures appear to be generalized GTC. Patient is back to baseline now and wants to go home. CT of head showed no acute intracranial abnormalit. No focal neurological deficits noted. Has elevated Troponin thought to be related to seizure. No chest pain now. Advised the patient to take depakote DR 500mg tid instead of bid. Past Med Surg Social Fam HX - Past Medical History Medical history: COPD, hyperlipidemia, hypertension, seizures Psychiatric history: no psych history - Past Surgical History Surgical History: herniorrhaphy, orthopedic, other - Social History Smoking Status: Current every day smoker Smokeless Tobacco Status: No Alcohol use: occasionally Drug use: marijuana Medications and Allergies Divalproex (24 HR) [Depakote ER (24 HR)] 500 mg PO BID 06/15/16 [History] Aspirin 325 mg PO DAILY PRN 10/25/17 [History] 3 Allergy/AdvReac Type Severity Reaction Status Date / Time codeine AdvReac Hives Verified 10/25/17 06:38 All Systems: The remainder of the systems were reviewed and are negative Physical Examination - Vital Signs Vital Signs: Initial Vital Signs Temp Pulse Resp BP Pulse Ox 97.6 F 72 20 186/80 96 10/25/17 03:38 10/25/17 03:38 10/25/17 03:38 10/25/17 03:38 10/25/17 03:38 - Constitutional General appearance: comfortable - Neurologic Detailed motor examination: full strength in all major muscle groups Motor examination - right side: 10/12: deltoids, biceps, triceps, wrist flexion, 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 extension, 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, 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, tibialis Anterior, quadriceps, toe extension (EHL), plantarflexion Motor examination - left side: 5: deltoids, biceps, triceps, wrist flexion, wrist extension, hip flexors, 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, quadriceps, tibialis Anterior, toe extension (EHL), plantarflexion Detailed sensory examination: intact Reflex and gait examination: intact Reflexes: Biceps: 2+, Triceps: 2+, Brachioradialis: 2+, Patella: 2+, Achilles: 2 + Mental Status Examination: awake, alert, oriented to person, oriented to place, oriented to time, follows commands appropriately, answers questions appropriately, no agnosia, no aphasia, no aproxia Cranial nerve examination: PERRL, EOMI, visual conway intact, corneal reflexes brisk symmetrically, sensory to face intact, mastication intact, no facial asymmetry is present, no dysarthria, hearing is intact symmetrically, soft palate elevates bilaterally upon phonation, gag reflex intact, flexes SCM and trapezius muscles symmetrically with full power, tongue protrudes midline, no atrophy or facial fasiculations present Cerebellar examination: no dysmetria, performs finger to nose and heel to packer symmetrically without ataxia, no gait ataxia, no truncal ataxia, no difficulty with rapid alternating movements Results - Laboratory Findings CBC and BMP: 10/25/17 06:03 10/25/17 04:22 Abnormal lab findings: Abnormal lab results WBC 12.4 K/mcL (4.3-11.1) H 10/25/17 06:03 MCH 33.4 pg (28.0-33.3) H 10/25/17 06:03 APTT 95.5 Seconds (26.0-36.0) H D 10/25/17 08:29 D-Dimer 576 ng/mLFEU (0-500) H 10/25/17 04:12 Troponin I 0.04 ng/mL (< 0.04) H* 10/25/17 08:29 Valproic Acid 34 mcg/mL (50-100) L 10/25/17 04:22 U Marijuana (THC) Screen Positive ng/mL (Cutoff = 50) H 10/25/17 10:01 Consult Discharge Plan - Plan Referrals: Fan Padgett [Partnered Physician] - 11/01/17 11:00 am (Please take the packet they mail you filled out to your appointment. Please show up 15 minutes early, take you picture ID, Insurance card, and a list of medication with you to your appointment including over the counter meds. Take your discharge instructions to your appointment. If you need to cancel please call with in 24 hours of your appointment.)
[2017-10-25] MEDS ORDERED: *HR* LORazepam 0.5 MG TABLET PO ONE (16:26)
[2017-10-26 02:36] LABS: Basophils # 0.1 K/mcL (0.0-0.2); Basophils % 0.6 %; Eosinophils # 0.2 K/mcL (0.0-0.6); Eosinophils % 1.7 %; Hematocrit 40.5 % (37.5-50.1); Hemoglobin 14.1 g/dL (12.9-16.9); Immature Granulocytes % 0.3 % (0-4); Lymphocytes # 3.9 K/mcL (0.6-4.6); Lymphocytes % 39.4 %; Mean Corpuscular HGB Conc 34.8 g/dL (31.6-35.5); Mean Corpuscular Volume 94.8 fL (83.0-100.0); Mean Platelet Volume 9.8 fL (9.4-12.4); Monocytes % 9.5 %; Neutrophils # 4.8 K/mcL (1.6-8.9); Platelet Count 212 K/mcL (140-400); Red Blood Count 4.27 M/mcL (4.19-5.50); Red Cell Distribution Width 12.4 % (11.5-14.5); Segmented Neutrophils % 48.5 %
[2017-10-26 02:55] LABS: Alanine Aminotransferase 9 Units/L (7-52); Albumin 3.8 g/dL (3.5-5.7); Albumin/Globulin Ratio 1.7 (1.1-2.2); Alkaline Phosphatase 38 Units/L (34-104); Aspartate Amino Transferase 12 Units/L (13-39); BUN/Creatinine Ratio 12 (6-26); Bilirubin,Total 0.7 mg/dL (0.3-1.0); Blood Urea Nitrogen 12 mg/dL (8-23); Calcium 9.1 mg/dL (8.6-10.3); Carbon Dioxide 29 mEq/L (23-29); Chloride 105 mEq/L (98-107); Chol/HDL Ratio 4.5 (0-4.9); Cholesterol 186 mg/dL (< 200); Globulin 2.2 g/dL (2.4-3.5); Glucose 102 mg/dL (70-105); HDL Cholesterol 41 mg/dL (40-59); LDL Cholesterol,Calculated 125 mg/dL (0-99); Osmolality,Calculated 284 (280-300); Potassium 4.1 mEq/L (3.5-5.1); Sodium 137 mEq/L (136-145); Triglycerides 101 mg/dL (< 150); eGFR For African Americans > 60 (> 60); eGFR For Non-African Americans > 60 (> 60)
[2017-10-26 07:08] VITALS: BP 138/80
[2017-10-26] MEDS: Divalproex (24 HR) 500 MG TABLET PO SCH (08:53)
[2017-10-26] MEDS: Valproic Acid 250 MG CAPSULE PO SCH (08:54)
--- NOTE | 2017-10-26 08:57 | Discharge Summary ---
- NOTES TO OUTPATIENT PROVIDER Notes to Outpatient Provider: Breakthrough seizures, increased Depakote, Neurology f/up recommended; Date of Encounter: 10/26/17 Time of Encounter: 08:54 - Discharge Diagnosis (1) NSTEMI (non-ST elevated myocardial infarction) Priority: Primary Status: Suspected (2) Seizure Priority: Primary Status: Acute (3) COPD (chronic obstructive pulmonary disease) Priority: Secondary Status: Chronic Qualifiers: COPD type: emphysema Emphysema type: centrilobular Qualified Code(s): J43.2 - Centrilobular emphysema Hospital course: Mr. Sherman is a 67 year old male wa admitted with 3 episodes of generalized seizures at home, involving left facial injury and ecchymoses/black eye. CT head , C-Spine, CT facial bones showed no acute trauma or fracture. CTA chest showed no PE or Pneumonia. Initial labs showed mild Troponin leak. Patient also c/o- active chest pain, with EKG changes including lateral T wave changes, he was started on IV Nitroglycerine and Heparin drip, after d;w Cardiology. Neurology was consulted and his home dose of Depakote was increased to TID 500mg. He remained seizure-free since arrival to the ER. Serial Troponins normalized. Echocardiogram showed preserved EF, no WMA. Cardiology recommended outpatient f/up. Case d/w Neurology, cleared for discharge. Patient was instructed on not driving until he remains seizure-free for 6 months. Discharge discussed with: patient, nurse, systems management consultant - Time Spent with Patient Total time spent providing and/or coordinating discharge services: Greater than 30 minutes (40 min) - Discharge Medications Prescriptions: Aspirin Enteric Coated [Aspirin EC] 81 mg PO DAILY #30 tablet. Divalproex (24 HR) [Depakote ER (24 HR)] 500 mg PO HS #30 tab.er.24h Divalproex (24 HR) [Depakote ER (24 HR)] 1,000 mg PO DAILY #60 tab.er.24h Home Medications: Aspirin Enteric Coated [Aspirin EC] 81 mg PO DAILY #30 tablet. 10/26/17 [Rx] Divalproex (24 HR) [Depakote ER (24 HR)] 1,000 mg PO DAILY #60 tab.er.24h [Rx] Divalproex (24 HR) [Depakote ER (24 HR)] 500 mg PO HS #30 tab.er.24h 10/26/17 [ Rx] Allergies/Adverse Reactions: 3 Allergy/AdvReac Type Severity Reaction Status Date / Time codeine AdvReac Hives Verified 10/25/17 06:38 Date of admission: 10/25/17 06:19 Primary care physician: PCP NONE Consults: 10/25/17 08:35 Consult to Cardiac Rehabilitation-Phase1 [CONS] Routine Comment: Reason for Consult: AMI Call Completed: Yes Consult to Nurse Navigator [CONS] Routine Comment: 10/25/17 08:42 Consult to Neurology [CONS] Routine Consulting Provider: Neurology [facility] Reason for Consult: Seizure Call Completed: Yes Discharging clinician: Ivette Landon date of discharge: 10/26/17 - Constitutional Vitals: Temp Pulse Resp BP Pulse Ox 98.1 F 66 19 138/80 99 10/26/17 07:07 10/26/17 07:07 10/26/17 07:07 10/26/17 07:07 10/26/17 07:07 General appearance: Present: A&O X 3, answers questions appropriately - Eye Eye exam: Present: periorbital swelling (left periorbital ecchymoses/black eye) , PERRL, conjuntiva pink, sclera anicteric Pupils: Present: PERRL - Cardiovascular Cardiovascular exam: Present: RRR, +S1, +S2. Absent: diastolic murmur, gallop, rubs, systolic murmur - Patient Status Disposition: Home, Self-Care Condition: Fair Functional capacity at discharge: independent ambulation Overall status at discharge: patient is progressing back to baseline - Discharge Instructions Instructions: Divalproex (By mouth), Myocardial Infarction (DC) Follow Up With: Fan Padgett [Partnered Physician] - 11/01/17 11:00 am (Please take the packet they mail you filled out to your appointment. Please show up 15 minutes early, take you picture ID, Insurance card, and a list of medication with you to your appointment including over the counter meds. Take your discharge instructions to your appointment. If you need to cancel please call with in 24 hours of your appointment.) Forms: ED Satisfaction Letter - Diet and Activity Activity: other (Not allowed to drive until remains seizure-free for 6months) Diet: low fat, low cholesterol, low salt diet
[2017-10-26] MEDS ORDERED: Aspirin Enteric Coated 81 MG Tablet PO SCH (09:00)
--- NOTE | 2017-10-26 09:31 | Cardiology Progress Note ---
Date of Encounter: 10/26/17 Time of Encounter: 09:00 Assessment and Plan (1) Elevated troponin Current Visit: Yes Status: Acute Per cardiology: -Troponin 0.04, 0.04, 0.03 in the setting of seizures, HTN. Elevated troponin likely not cardiac in etiology. No ischemic ECG changes noted. No chest pain reported. TTE shows preserved LVEF with normal wall motion. Stop IV heparin gtt, stop NTG gt.. Recommend continued medical therapy--asa, statin and BB. Consider outpatient ischemic evaluation, patient is agreeable. Cardiology will sign-off, will coordinate outpatient follow-up. Discussion w patient/family: The assessment and plan as outlined above was discussed with the patient and/or family members who expressed understanding and agreement. All questions were answered. Thank you for involving us in the care of your patient. Please call with any questions. The patient was discussed and reviewed with Dr. Esposito who agrees with plan as stated above. Cardiology will sign-off, will coordinate outpatient follow-up. Subjective Principal diagnosis: Seizure, elevated troponin Interval history: Seen and examined. No chest pain/pressure reported overnight. Is eager for discharge today. Objective Vital Signs, Last 4 Hours Temp Pulse Resp BP Pulse Ox 10/26/17 07:07 98.1 F 66 19 138/80 99 General: Conversant HEENT: Atraumatic, Normocephaly, Other (bruise left eye) Cardiac: Reg Rate and Rhythm, Normal S1 and S2 Lungs: Normal Breath Sounds Neuro: Alert and responsive Abdomen: Soft Skin: No rashes noted on visualized skin Musculoskeletal: No Chest Wall Tenderness Extremities: No Edema, Normal Pulses Results 10/26/17 02:20 10/26/17 02:20 Lab Results 10/25/17 10/25/17 10/25/17 08:29 14:17 15:47 WBC Hgb Hct Plt Count APTT 39.1 H D Sodium Potassium Chloride Carbon Dioxide BUN Creatinine Glucose Calcium Total Bilirubin AST ALT Alkaline Phosphatase Troponin I 0.04 H* 0.03 TSH 3.379 10/25/17 10/26/17 10/26/17 22:49 02:20 02:20 WBC 10.0 Hgb 14.1 Hct 40.5 Plt Count 212 APTT 94.6 H D Sodium 137 Potassium 4.1 Chloride 105 Carbon Dioxide 29 BUN 12 Creatinine 0.99 Glucose 102 Calcium 9.1 Total Bilirubin 0.7 AST 12 L ALT 9 Alkaline Phosphatase 38 Troponin I TSH 10/26/17 06:29 WBC Hgb Hct Plt Count APTT 33.4 D Sodium Potassium Chloride Carbon Dioxide BUN Creatinine Glucose Calcium Total Bilirubin AST ALT Alkaline Phosphatase Troponin I TSH Active Medications Albuterol/Ipratropium (Duoneb) 3 ml IH [id number] PRN PRN Reason: Shortness Of Breath/Wheezing Stop: 04/26/18 09:19 Aspirin (Aspirin Ec) 81 mg PO DAILY [facility] Stop: 04/27/18 09:01 Last Admin: 10/26/17 08:55 Dose: 81 mg Atorvastatin Calcium (Lipitor) 20 mg PO HS LEONARDO Stop: 04/26/18 21:01 Last Admin: 10/25/17 19:55 Dose: 20 mg Carvedilol (Coreg) 3.125 mg PO BIDWM LEONARDO PRN Reason: Protocol Stop: 04/26/18 10:12 Last Admin: 10/26/17 08:54 Dose: 3.125 mg Divalproex Sodium (Depakote Er (24 Hr)) 500 mg PO BID [facility] Stop: 04/26/18 09:01 Last Admin: 10/26/17 08:53 Dose: Not Given Lorazepam (Ativan) 2 mg IVP ONCE PRN PRN Reason: Seizure Activity Stop: 04/26/18 06:06 Naloxone HCl (Narcan) 0.4 mg IVP Q2MIN PRN PRN Reason: SEE COMMENTS Stop: 04/26/18 08:36 Nitroglycerin (Nitroglycerin) 0.4 mg SL Q5MIN PRN PRN Reason: Chest Pain Stop: 04/26/18 04:48 Last Admin: 10/25/17 05:06 Dose: 0.4 mg Valproic Acid (Depakene) 250 mg PO 1700 [facility] Stop: 04/26/18 17:01 Last Admin: 10/25/17 16:33 Dose: 250 mg Valproic Acid (Depakene) 500 mg PO 0800 [facility] Stop: 04/26/18 09:16 Last Admin: 10/26/17 08:54 Dose: 500 mg Consult Discharge Plan - Plan Instructions: Divalproex (By mouth), Myocardial Infarction (DC) Referrals: Fan Padgett [Partnered Physician] - 11/01/17 11:00 am (Please take the packet they mail you filled out to your appointment. Please show up 15 minutes early, take you picture ID, Insurance card, and a list of medication with you to your appointment including over the counter meds. Take your discharge instructions to your appointment. If you need to cancel please call with in 24 hours of your appointment.) Prescriptions: Aspirin Enteric Coated [Aspirin EC] 81 mg PO DAILY #30 tablet. Divalproex (24 HR) [Depakote ER (24 HR)] 500 mg PO HS #30 tab.er.24h Divalproex (24 HR) [Depakote ER (24 HR)] 1,000 mg PO DAILY #60 tab.er.24h
--- NOTE | 2017-10-28 07:11 | Electrocardiograph Report ---
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
== END 2017-10-26 09:30 | disposition home or self-care (01) ==
LOC: 3BNU 03:36 → EMEROO 03:36 → SUATTDRO 06:19 → 2NNU 06:37
PROVIDERS: ADMIT General Practice; ATTEND Internal Medicine

== ENCOUNTER 2018-02-04 15:24 | Observation (INO) ==
[2018-02-04] MEDS ORDERED: Ipratropium/Albuterol Neb 3 ML ONE (15:32)
[2018-02-04] MEDS ORDERED: 0.9 % Sodium Chloride 1,000 ML IVC ONE (15:35)
[2018-02-04] MEDS ORDERED: Ipratropium/Albuterol Neb 3 ML IH STA (15:36)
[2018-02-04] MEDS ORDERED: *HR* LORazepam 2 MG/ML VIAL ONE ×3 (15:42→22:59)
[2018-02-04 15:48] LABS: Bilirubin,Urine Small (Negative); Blood,Urine Negative (Negative); Clarity,Urine Clear (Clear); Color,Urine Dark Yellow (Yellow); Glucose,Urine (UA) Normal (Normal); Ketones,Urine Negative (Negative); Leukocyte Esterase,Urine Negative (Negative); Nitrite,Urine Negative (Negative); Protein,Urine 100 mg/dL (Neg-Trace); Specific Gravity,Urine 1.026 (1.010-1.025); Urobilinogen,Urine Normal (Normal)
[2018-02-04 15:50] LABS: Bacteria,Urine None Seen per hpf (None-Few); RBC,Urine 0-3 per hpf (0-3); Squamous Epithelial Cell,Urine Many per lpf (None-Few); WBC,Urine 0-3 per hpf (0-3)
[2018-02-04 16:01] LABS: INR 1.1
[2018-02-04] MEDS ORDERED: 0.9 % Sodium Chloride 1,000 ML ONE (16:07)
[2018-02-04 16:17] LABS: Alanine Aminotransferase 13 Units/L (7-52); Albumin/Globulin Ratio 1.5 (1.1-2.2); Alkaline Phosphatase 38 Units/L (34-104); Amphetamine Screen,Urine Negative ng/mL (Cutoff=1000); Aspartate Amino Transferase 30 Units/L (13-39); BUN/Creatinine Ratio 20 (6-26); Barbiturate Screen,Urine Negative ng/mL (Cutoff=200); Benzodiazepines Screen,Urine Positive ng/mL (Cutoff=200); Bilirubin,Direct 0.1 mg/dL (0.0-0.2); Bilirubin,Indirect 0.3 mg/dL (0.0-1.2); Bilirubin,Total 0.4 mg/dL (0.3-1.0); Blood Urea Nitrogen 27 mg/dL (8-23); Calcium 9.4 mg/dL (8.6-10.3); Cannabinoid Screen,Urine Positive ng/mL (Cutoff = 50); Carbon Dioxide 23 mEq/L (23-29); Chloride 105 mEq/L (98-107); Cocaine Screen,Urine Negative ng/mL (Cutoff= 300); Ethanol 10 mg/dL (Less than 10); Globulin 2.7 g/dL (2.4-3.5); Glucose 217 mg/dL (70-105); Opiate Screen,Urine Negative ng/mL (Cutoff=300); Osmolality,Calculated 292 (280-300); Phencyclidine Screen,Urine Negative ng/mL (Cutoff=25); Potassium 6.4 mEq/L (3.5-5.1); Sodium 135 mEq/L (136-145); Total Protein 6.7 g/dL (6.4-8.9); Troponin I 0.81 ng/mL (< 0.04); eGFR For Non-African Americans 52 (> 60)
[2018-02-04 16:22] LABS: Hyaline Casts,Urine Many per lpf (None-Few); Mucus,Urine Moderate (Few)
[2018-02-04] MEDS ORDERED: Haloperidol Lactate 5 MG/ML VIAL ONE (16:30)
[2018-02-04 16:33] LABS: Valproate 49 mcg/mL (50-100)
[2018-02-04] MEDS ORDERED: Valproic Acid INJ 500 MG in 0.9 % Sodium Chloride 100 ML IVPB STA (17:02)
[2018-02-04 17:03] LABS: Basophils % 0.3 %; Eosinophils % 0.1 %; Hematocrit 46.2 % (37.5-50.1); Hemoglobin 15.2 g/dL (12.9-16.9); Immature Granulocytes % 0.7 % (0-4); Lymphocytes # 0.9 K/mcL (0.6-4.6); Lymphocytes % 5.5 %; Mean Corpuscular HGB Conc 32.9 g/dL (31.6-35.5); Mean Corpuscular Hemoglobin 33.2 pg (28.0-33.3); Mean Corpuscular Volume 100.9 fL (83.0-100.0); Mean Platelet Volume 10.5 fL (9.4-12.4); Monocytes # 1.7 K/mcL (0.0-1.3); Monocytes % 10.5 %; Neutrophils # 13.3 K/mcL (1.6-8.9); Platelet Count 178 K/mcL (140-400); Red Blood Count 4.58 M/mcL (4.19-5.50); Red Cell Distribution Width 12.5 % (11.5-14.5); Segmented Neutrophils % 82.9 %
--- NOTE | 2018-02-04 17:26 | Emergency Department Note ---
Disposition Clinical Impression: Elevated troponin, Seizure Altered mental status Qualifiers: Altered mental status type: unspecified Qualified Code(s): R41.82 - Altered mental status, unspecified Disposition: Admitted As Inpatient Condition: Good Referrals: NONE,PCP [Primary Care Provider] - General Adult HPI - General Chief complaint: ED Seizure Stated complaint: Seizure/Unresponsive Time Seen by Provider: 02/04/18 15:35 Source: EMS Limitations: other Nursing Notes Reviewed: Yes Vital Signs Reviewed: Yes - History of Present Illness HPI Narrative: She presents today via EMS after having a seizure at home. Patient was standing in the kitchen when he collapsed. Patient had seizure-like activity causing him to hit his head against the counter several times. Patient continued to have seizure-like activity upon EMS for my arrival. Was given 2 mg of Versed. Symptoms resolved patient remained unresponsive. Respirations intact. Patient arrived to the emergency department with rhonchi bilaterally. Gag reflex intact. Patient attempted to open his eyes and follow commands. Pupils were pinpoint. 2 mg of Narcan were given without response. The patient will undergo CT evaluation of head and neck for trauma. Blood work has been sent. Pain Scale: 0 - Related Data Previous Rx's Medication Instructions Recorded Aspirin Enteric Coated [Aspirin EC] 81 mg PO DAILY #30 tablet. 10/26/17 Divalproex (24 HR) [Depakote ER 1,000 mg PO DAILY #60 tab.er.24h 10/26/17 (24 HR)] Divalproex (24 HR) [Depakote ER 500 mg PO HS #30 tab.er.24h 10/26/17 (24 HR)] Allergies Allergy/AdvReac Type Severity Reaction Status Date / Time codeine AdvReac Hives Verified 10/25/17 06:38 Limitations: ROS unobtainable due to patients medical condition Past Medical History - Past Medical History Medical history: Reports: COPD, hyperlipidemia, hypertension, seizures Surgical history: Reports: herniorrhaphy, orthopedic, other Psychiatric history: Reports: no psych history - Social History Smoking Status: Current every day smoker Smokeless Tobacco Status: No Alcohol use: Reports: occasionally Drug use: Reports: marijuana Physical Exam General: Nonresponsive Head: Normocephalic Atraumatic Eyes: PERRL, EOMI ENT: Airway patent, mild sonorous respirations Neck: supple, no meningismus Chest: Rhonchi bilaterally Cardiac: Regular rhythm Abdomen: soft, nontender, nondistended Musculoskeletal: Calves symmetric, nontender, no edema Skin: Ecchymosis to the left maxilla Neuro: Attempts to open eyes during exam - General Limitations: other General appearance: other Course - Reevaluation(s) Reevaluation #1: Patient became agitated and got 2 mg of Ativan IV. Patient now has family at bedside. States that he takes Depakote on a regular basis. Does not normally miss his medications but was due for a refill yesterday and has 3 tablets left. Patient has been awake and moving extremities except for his left upper extremity. We will discuss neurology. Reevaluation #2: Patient was moved from the trauma room to a regular emergency department room. Patient became agitated and wanted to get out of bed. Patient is now moving all 4 extremities. Patient is confused at this time. Family states that he does have confusion after seizures. CT head is negative for intracranial bleed. Heparin has been started. - Consultations Consultation #1: Case discussed with neurology. Patient is okay to stay at [place] for further evaluation and workup. Recommends MRI of the brain if continued left-sided weakness Consultation #2: Discussed with hospitalist. Patient except for admission Vital Signs Temperature 98.8 F 02/04/18 15:26 Pulse Rate 94 02/04/18 15:26 Respiratory Rate 16 02/04/18 15:26 Blood Pressure 110/84 02/04/18 15:26 O2 Sat by Pulse Oximetry 99 02/04/18 15:26 Temperature 98.8 F 02/04/18 15:26 Pulse Rate 84 02/04/18 16:59 Respiratory Rate 24 02/04/18 16:59 Blood Pressure 105/63 02/04/18 16:59 O2 Sat by Pulse Oximetry 100 02/04/18 16:59 Oxygen Delivery Oxygen Delivery Non Rebreather Mask Medical Decision Making - Medical Records Medical records reviewed: Yes I reviewed the patient's medical records. - Lab Data Lab results reviewed: Yes I reviewed the patient's lab results. Result diagrams: 02/04/18 16:35 02/04/18 15:36 Lab Results 02/04/18 02/04/18 02/04/18 Range/Units 15:36 15:36 15:36 WBC (4.3-11.1) K/mcL RBC (4.19-5.50) M/mcL Hgb (12.9-16.9) g/dL Hct (37.5-50.1) % MCV (83.0-100.0) fL MCH (28.0-33.3) pg MCHC (31.6-35.5) g/dL RDW (11.5-14.5) % Plt Count (140-400) K/mcL MPV (9.4-12.4) fL Immature Gran % (0-4) % Seg Neutrophils % % Lymphocytes % % Monocytes % % Eosinophils % % Basophils % % Neutrophils # (1.6-8.9) K/mcL Lymphocytes # (0.6-4.6) K/mcL Monocytes # (0.0-1.3) K/mcL Eosinophils # (0.0-0.6) K/mcL Basophils # (0.0-0.2) K/mcL PT 12.0 (9.4-12.1) Seconds INR 1.1 Sodium 135 L (136-145) mEq/L Potassium 6.4 H (3.5-5.1) mEq/L Chloride 105 (98-107) mEq/L Carbon Dioxide 23 (23-29) mEq/L BUN 27 H (8-23) mg/dL Creatinine 1.37 H (0.70-1.30) mg/dL Est GFR ( Amer) > 60 (> 60) Est GFR (Non-Af Amer) 52 L (> 60) BUN/Creatinine Ratio 20 (6-26) Glucose 217 H (70-105) mg/dL Calculated Osmolality 292 (280-300) Calcium 9.4 (8.6-10.3) mg/dL Total Bilirubin 0.4 (0.3-1.0) mg/dL Direct Bilirubin 0.1 (0.0-0.2) mg/dL Indirect Bilirubin 0.3 (0.0-1.2) mg/dL AST 30 (13-39) Units/L ALT 13 (7-52) Units/L Alkaline Phosphatase 38 (34-104) Units/L Troponin I 0.81 H* (< 0.04) ng/mL Serum Total Protein 6.7 (6.4-8.9) g/dL Albumin 4.0 (3.5-5.7) g/dL Globulin 2.7 (2.4-3.5) g/dL Albumin/Globulin Ratio 1.5 (1.1-2.2) Urine Color Dark Yellow (Yellow) Urine Clarity Clear (Clear) Urine pH 5.0 (5.0-8.0) pH Units Ur Specific [place] 1.026 H (1.010-1.025) Urine Protein 100 H (Neg-Trace) mg/dL Urine Glucose (UA) Normal (Normal) mg/dL Urine Ketones Negative (Negative) mg/dL Urine Blood Negative (Negative) Urine Nitrite Negative (Negative) Urine Bilirubin Small H (Negative) Urine Urobilinogen Normal (Normal) mg/dL Ur Leukocyte Esterase Negative (Negative) Urine Microscopic RBC 0-3 (0-3) per hpf Urine Microscopic WBC 0-3 (0-3) per hpf Ur Squamous Epith Cells Many H (None-Few) per lpf Urine Bacteria None Seen (None-Few) per hpf Hyaline Casts Many H (None-Few) per lpf Urine Mucus Moderate H (Few) Ur Culture Indicated? NO (NO) Urine Opiates Screen (Kpvcbd=744) ng/mL Ur Barbiturates Screen (Olrsev=797) ng/mL Valproic Acid 49 L (50-100) mcg/mL Ur Phencyclidine Scrn (Cutoff=25) ng/mL Ur Amphetamines Screen (Dayfac=1246) ng/mL U Benzodiazepines Scrn (Sditch=000) ng/mL Urine Cocaine Screen (Cutoff= 300) ng/mL U Marijuana (THC) Screen (Cutoff = 50) ng/mL Ur Drug Screen Interp Ethyl Alcohol 10 H (Less than 10) mg/dL Specimen Rejected 02/04/18 02/04/18 02/04/18 Range/Units 15:36 15:36 16:35 WBC 16.0 H (4.3-11.1) K/mcL RBC 4.58 (4.19-5.50) M/mcL Hgb 15.2 (12.9-16.9) g/dL Hct 46.2 (37.5-50.1) % MCV 100.9 H (83.0-100.0) fL MCH 33.2 (28.0-33.3) pg MCHC 32.9 (31.6-35.5) g/dL RDW 12.5 (11.5-14.5) % Plt Count 178 (140-400) K/mcL MPV 10.5 (9.4-12.4) fL Immature Gran % 0.7 (0-4) % Seg Neutrophils % 82.9 % Lymphocytes % 5.5 % Monocytes % 10.5 % Eosinophils % 0.1 % Basophils % 0.3 % Neutrophils # 13.3 H (1.6-8.9) K/mcL Lymphocytes # 0.9 (0.6-4.6) K/mcL Monocytes # 1.7 H (0.0-1.3) K/mcL Eosinophils # 0.0 (0.0-0.6) K/mcL Basophils # 0.0 (0.0-0.2) K/mcL PT (9.4-12.1) Seconds INR Sodium (136-145) mEq/L Potassium (3.5-5.1) mEq/L Chloride (98-107) mEq/L Carbon Dioxide (23-29) mEq/L BUN (8-23) mg/dL Creatinine (0.70-1.30) mg/dL Est GFR ( Amer) (> 60) Est GFR (Non-Af Amer) (> 60) BUN/Creatinine Ratio (6-26) Glucose (70-105) mg/dL Calculated Osmolality (280-300) Calcium (8.6-10.3) mg/dL Total Bilirubin (0.3-1.0) mg/dL Direct Bilirubin (0.0-0.2) mg/dL Indirect Bilirubin (0.0-1.2) mg/dL AST (13-39) Units/L ALT (7-52) Units/L Alkaline Phosphatase (34-104) Units/L Troponin I (< 0.04) ng/mL Serum Total Protein (6.4-8.9) g/dL Albumin (3.5-5.7) g/dL Globulin (2.4-3.5) g/dL Albumin/Globulin Ratio (1.1-2.2) Urine Color (Yellow) Urine Clarity (Clear) Urine pH (5.0-8.0) pH Units Ur Specific [place] (1.010-1.025) Urine Protein (Neg-Trace) mg/dL Urine Glucose (UA) (Normal) mg/dL Urine Ketones (Negative) mg/dL Urine Blood (Negative) Urine Nitrite (Negative) Urine Bilirubin (Negative) Urine Urobilinogen (Normal) mg/dL Ur Leukocyte Esterase (Negative) Urine Microscopic RBC (0-3) per hpf Urine Microscopic WBC (0-3) per hpf Ur Squamous Epith Cells (None-Few) per lpf Urine Bacteria (None-Few) per hpf Hyaline Casts (None-Few) per lpf Urine Mucus (Few) Ur Culture Indicated? (NO) Urine Opiates Screen Negative (Ltjvjd=447) ng/mL Ur Barbiturates Screen Negative (Csldwl=381) ng/mL Valproic Acid (50-100) mcg/mL Ur Phencyclidine Scrn Negative (Cutoff=25) ng/mL Ur Amphetamines Screen Negative (Ylfdto=8240) ng/mL U Benzodiazepines Scrn Positive H (Mbpcih=724) ng/mL Urine Cocaine Screen Negative (Cutoff= 300) ng/mL U Marijuana (THC) Screen Positive H (Cutoff = 50) ng/mL Ur Drug Screen Interp See Below Ethyl Alcohol (Less than 10) mg/dL Specimen Rejected Clotted - Radiology Data Radiology results reviewed: Yes I reviewed the patient's radiology results. - EKG Data EKG #1 EKG attestation: Yes I reviewed and interpreted this EKG. EKG results narrative: EKG shows sinus rhythm with heart rate of 95. IN interval 210. QRS 97. QTC 469. Patient has no significant ST elevations or depressions. Patient does have T-wave inversion in the lead 1 and aVL. These T-wave inversions are new from previous EKG where patient just had poor baseline.
[2018-02-04] MEDS ORDERED: *HR* Heparin 5,000 UNIT/ML VIAL IVP ONE (17:39)
[2018-02-04] MEDS ORDERED: *HR* Heparin 5,000 UNIT/ML VIAL IVP PRN ×2 (17:39)
[2018-02-04] MEDS ORDERED: Heparin 25,000 UNIT/500 ML D5W 25,000 UNIT/500 ML BAG IVC SCH (17:45)
[2018-02-04] MEDS ORDERED: Naloxone 0.4 MG/ML INJ IVP PRN (18:34)
[2018-02-04] MEDS ORDERED: Heparin 25,000 UNIT/500 ML D5W 25,000 UNIT/500 ML BAG IVC ONE (19:16)
[2018-02-04] MEDS ORDERED: Ringers Solution, Lactated 1,000 ML ONE (19:16)
[2018-02-04 19:21] LABS: BUN/Creatinine Ratio 21 (6-26); Blood Urea Nitrogen 26 mg/dL (8-23); Calcium 8.8 mg/dL (8.6-10.3); Carbon Dioxide 18 mEq/L (23-29); Chloride 108 mEq/L (98-107); Glucose 124 mg/dL (70-105); Osmolality,Calculated 290 (280-300); Potassium 4.5 mEq/L (3.5-5.1); Sodium 137 mEq/L (136-145); eGFR For Non-African Americans 59 (> 60)
[2018-02-04] MEDS: Ringers Solution, Lactated 1,000 ML IVC SCH (19:23)
[2018-02-04] MEDS: *HR* LORazepam 2 MG/ML VIAL IVP PRN (23:03)
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
[2018-02-05] MEDS ORDERED: *HR* LORazepam 2 MG/ML VIAL IVP ONE (02:09)
[2018-02-05 02:14] LABS: Basophils % 0.2 %; Eosinophils % 0.1 %; Hematocrit 41.5 % (37.5-50.1); Immature Granulocytes % 0.4 % (0-4); Lymphocytes # 3.6 K/mcL (0.6-4.6); Lymphocytes % 35.8 %; Mean Corpuscular HGB Conc 33.7 g/dL (31.6-35.5); Mean Corpuscular Hemoglobin 32.9 pg (28.0-33.3); Mean Corpuscular Volume 97.6 fL (83.0-100.0); Mean Platelet Volume 10.4 fL (9.4-12.4); Monocytes # 1.2 K/mcL (0.0-1.3); Monocytes % 11.6 %; Neutrophils # 5.2 K/mcL (1.6-8.9); Platelet Count 183 K/mcL (140-400); Red Blood Count 4.25 M/mcL (4.19-5.50); Red Cell Distribution Width 12.9 % (11.5-14.5); Segmented Neutrophils % 51.9 %
[2018-02-05] MEDS: Valproic Acid INJ 500 MG in 0.9 % Sodium Chloride 100 ML IVPB SCH ×2 (02:15→10:12)
[2018-02-05 02:41] LABS: BUN/Creatinine Ratio 19 (6-26); Blood Urea Nitrogen 22 mg/dL (8-23); Calcium 8.9 mg/dL (8.6-10.3); Carbon Dioxide 24 mEq/L (23-29); Chloride 109 mEq/L (98-107); Glucose 90 mg/dL (70-105); Osmolality,Calculated 289 (280-300); Potassium 4.1 mEq/L (3.5-5.1); Sodium 138 mEq/L (136-145); eGFR For Non-African Americans > 60 (> 60)
[2018-02-05] MEDS: *HR* LORazepam 2 MG/ML VIAL IVP PRN (05:20)
[2018-02-05] MEDS ORDERED: *HR* LORazepam 2 MG/ML VIAL IVP PRN ×3 (07:43)
[2018-02-05] MEDS ORDERED: Aspirin 325 MG TABLET PO ONE (09:10)
--- NOTE | 2018-02-05 09:24 | Neurology - Consult Note ---
<Phoenix Jennings P - Last Filed: 02/05/18 13:34> Date of Encounter: 02/05/18 Time of Encounter: 09:00 Assessment and Plan (1) Seizure Current Visit: No Status: Acute The patient is chronic patient of Seizure disorder Misseing antiseizure medication and substance abuse and alcohol might have precipitated seizure. He was on Divalproex ER 1500 Mg HS He missed some doses of Seizure medication. His urine was positive for Benzodiazepine and marijuana His alcohol level was High and Valporic acid level was low. Now , he is on IV valporic acid 500 mg and Ativan 4 mg PRN No seizure activity after admission 4 point restrain placed for his combative behaviour We will constantly monitor for development of seizure. Plan : EEG Continue IV for now planned to change the dose of Divalproex 500 mg in the morning and 1000 mg in the evening Monitor any seizure activity ER History of Present Illness Chief complaint: Seizure like activity for 1 day and elevated troponin HPI: Mr. Sherman is a 67 year old male presented to [facility] ED on 02/04/2018 for seizure. He is a known case of Seizure under seizure medication ( Divalproex ER 1500 mg HS) .The patient had seizure like activity at home while he was standing in Kitchen ,then he fell on the floor and hit his head several times against the counter . He had missed his seizure medication for couple of days.He still had seizure while EMS team reached to him. As per ED note, He was given 2 mg Versed to control his seizure.His seizure was partially controlled , but he was still in post ictal confusion state and his pupil was pin point, airway was maintained and he was slightly responsive He still had seizure while he was in ED and seizure was controlled with IV valproic acid loading dose and Ativan . The patient became more aggressive and combative , so he was put on [address] head done at ED was normal, Chest Xray was also normal.His Urine test was positive for Marijuana and benzodiazepine and alcohol , but drug level of valporic acid was low. His troponin level was elevated and EKG non specific. During My visit , patient was sleeping comfortably in bed , 4 point restrain had been released, vitals : tem 98.7, BP 93/62, Sat 90% , pulse 62. Na 138, K 4.1, TLC 10.1, Glucose 90, , BUN 22, Creatinine 1.18, PT 12, INR 1.1. Patient has been planned for EEG We will monitor any seizure activities Continue IV valporic acid for now Planned to change Divalproex 500 mg in the morning and 1000 mg in the evening Past Med Surg Social Fam HX - Past Medical History Medical history: COPD, hyperlipidemia, hypertension, seizures Psychiatric history: no psych history - Past Surgical History Surgical History: herniorrhaphy, orthopedic, other - Social History Smoking Status: Current every day smoker Smokeless Tobacco Status: No Alcohol use: occasionally Drug use: marijuana Medications and Allergies Divalproex (24 HR) [Depakote ER (24 HR)] 1,500 mg PO HS 02/04/18 [History] 3 Allergy/AdvReac Type Severity Reaction Status Date / Time codeine AdvReac Hives Verified 02/04/18 19:13 All Systems: The remainder of the systems were reviewed and are negative Physical Examination - Vital Signs Vital Signs: Initial Vital Signs Temp Pulse Resp BP Pulse Ox 98.8 F 94 16 110/84 99 02/04/18 15:26 02/04/18 15:26 02/04/18 15:26 02/04/18 15:26 02/04/18 15:26 - Exam Exam: General :He is alert, but showing combative behavior, he was put on 4 point restrains.He was not cooperative to do detail physical examination. Opens eye with verbal command Oriented to place and person No seizure observed Neurology /Motor: both upper and lower limb motor strength 5/5 grossly Planter down going Pupil: reactive to light bilaterally Chest; Normal chest expansion, normal air entry, no added sound noted both side Heart: Normal rate and rhythm, S1S2 normal, no murmur or added sounds - Neurologic Detailed motor examination: grossly full strength in all extremities Motor examination - right side: 5/5: deltoids Motor examination - left side: 5/5: hip flexors Reflexes: Biceps: 2+, Triceps: 2+, Patella: 2+, Achilles: 2+ Mental Status Examination: awake, oriented to person, oriented to place, opens eyes to voice Results - Laboratory Findings CBC and BMP: 02/05/18 01:40 02/05/18 01:40 Abnormal lab findings: Abnormal lab results Chloride 109 mEq/L (98-107) H 02/05/18 01:40 Troponin I 6.19 ng/mL (< 0.04) H* 02/05/18 01:40 Ur Specific [place] 1.026 (1.010-1.025) H 02/04/18 15:36 Urine Protein 100 mg/dL (Neg-Trace) H 02/04/18 15:36 Urine Bilirubin Small (Negative) H 02/04/18 15:36 Ur Squamous Epith Cells Many per lpf (None-Few) H 02/04/18 15:36 Hyaline Casts Many per lpf (None-Few) H 02/04/18 15:36 Urine Mucus Moderate (Few) H 02/04/18 15:36 Valproic Acid 49 mcg/mL (50-100) L 02/04/18 15:36 U Benzodiazepines Scrn Positive ng/mL (Eswytx=014) H 02/04/18 15:36 U Marijuana (THC) Screen Positive ng/mL (Cutoff = 50) H 02/04/18 15:36 Ethyl Alcohol 10 mg/dL (Less than 10) H 02/04/18 15:36 Consult Discharge Plan - Plan Referrals: NONE,PCP [Primary Care Provider] - <Malvin Jackson I - Last Filed: 02/05/18 15:44> Date of Encounter: 02/05/18 Assessment and Plan (1) Seizure Current Visit: No Status: Acute Pt was seen and examined, my medical decision was reviewed with the Resident Physician, I agree with the documented findings, disposition and treatment plas as described except to the extent set forth below This patient who apparently has a history of seizure disorder and likely has underlying mood disorder as well admitted with these breakthrough seizures likely combination from missing doses of his Depakote and at the same time from the substance abusE. Most likely cause these withdrawal seizures patient certainly need to be on withdrawal precautions his delirium likely related to it. Suggest to continue on Depakote along with Ativan as needed check his Depakote level to keep it therapeutic. Though we may do an EEG but at the moment do not think we be able to do it as patient is in 4-point restraints. Patient should remain on seizure and withdrawal precautions Malvin Jackson MD History of Present Illness HPI: Mr. Sherman is a 67 year old male All Systems: The remainder of the systems were reviewed and are negative Physical Examination - Vital Signs Vital Signs: Initial Vital Signs Temp Pulse Resp BP Pulse Ox 98.8 F 94 16 110/84 99 02/04/18 15:26 02/04/18 15:26 02/04/18 15:26 02/04/18 15:26 02/04/18 15:26 Results - Laboratory Findings CBC and BMP: 02/05/18 01:40 02/05/18 01:40 Abnormal lab findings: Abnormal lab results Chloride 109 mEq/L (98-107) H 02/05/18 01:40 Hemoglobin A1c 5.7 % (-5.6) H 02/05/18 09:23 Troponin I 2.65 ng/mL (< 0.04) H* 02/05/18 09:23 LDL Cholesterol, Calc 103 mg/dL (0-99) H 02/05/18 09:23 HDL Cholesterol 34 mg/dL (40-59) L 02/05/18 09:23 Ur Specific [place] 1.026 (1.010-1.025) H 02/04/18 15:36 Urine Protein 100 mg/dL (Neg-Trace) H 02/04/18 15:36 Urine Bilirubin Small (Negative) H 02/04/18 15:36 Ur Squamous Epith Cells Many per lpf (None-Few) H 02/04/18 15:36 Hyaline Casts Many per lpf (None-Few) H 02/04/18 15:36 Urine Mucus Moderate (Few) H 02/04/18 15:36 Valproic Acid 49 mcg/mL (50-100) L 02/04/18 15:36 U Benzodiazepines Scrn Positive ng/mL (Jryuet=116) H 02/04/18 15:36 U Marijuana (THC) Screen Positive ng/mL (Cutoff = 50) H 02/04/18 15:36 Ethyl Alcohol 10 mg/dL (Less than 10) H 02/04/18 15:36
[2018-02-05 09:46] LABS: Estimated Average Glucose 117 mg/dl; Hemoglobin A1C 5.7 %
[2018-02-05 09:52] LABS: Chol/HDL Ratio 4.4 (0-4.9)
[2018-02-05] MEDS: Ringers Solution, Lactated 1,000 ML IVC SCH (10:14)
--- NOTE | 2018-02-05 10:15 | Cardiology Consult Note ---
Addendum entered and electronically signed by Tala Fay CNP 02/05/18 10: 42: Of note, BP hypotensive. Will not start BB, consider BB if BP will tolerate. Original Note: Date of Encounter: 02/05/18 Time of Encounter: 09:30 Assessment and Plan (1) Seizure Current Visit: No Status: Acute Per cardiology: -Admitted after seizure at home. -Known history of seizures. -Per ER notes, has been combative and confused since seizure. -management per primary and neurology services. (2) NSTEMI (non-ST elevated myocardial infarction) Current Visit: No Status: Acute Per cardiology: -Troponins 0.81, 4.19, 6.19. -Denies chest pain, however confused. Patient currently combative, hitting and kicking. -No acute ischemic ECG changes. -Currently heparin drip is ordered, however he has ripped out multiple IVs. -Of note, during last hospital stay, patient refused cardiac testing. -10/2017 TTE with LVEF 60-65%, no segmental wall motion abnormalities noted. -At this point with aggressive behavior, would favor conservative medical management. -Recommend heparin drip for 48-72 hours. -Will repeat troponin. -Will start asa, statin, BB. -Will repeat limited echocardiogram. -Cardiac rehab consult is not appropriate at this time due to patient's mental status. Discussion w patient/family: The assessment and plan as outlined above was discussed with the patient who expressed understanding and agreement. All questions were answered. Thank you for involving us in the care of your patient. Please call with any questions. Discussed and reviewed with . History of Present Illness Consult date: 02/04/18 Requesting physician: Eamon Almaraz Consult reason: elevated troponin Chief complaint: seizure History of present illness: Mr. Sherman is a 67 year old male with a relevant past medical history of seizures, COPD, HTN, HLD, tobacco abuse, and marijuana abuse who presented to [facility] after seizures at home with confusion. Upon entering room, patient is naked , in 4 point restraints. Sitter at bedside. Patient has pulled out IVs and has been very agressive with staff, hitting and kicking. When asked if patient had chest pain, he stated "no." I attempted to further discuss with patient regarding symptoms, he refused to answer questions. Patient would not answer questions to determine if he is alert and oriented. Of note, during last hospital admission, patient was alert and oriented and he absolutely refused for cardiac testing. He had stated at that time, that marijuana is the only thing that helps his symptoms. Past Med Surg Social Fam HX - Past Medical History Attestation: Yes The following information was validated with the patient. Source: old records reviewed Medical history: COPD, hyperlipidemia, hypertension, seizures Psychiatric history: no psych history - Past Surgical History Surgical History: herniorrhaphy, orthopedic, other - Social History Smoking Status: Current every day smoker Smokeless Tobacco Status: No Alcohol use: occasionally Drug use: marijuana Medications and Allergies Divalproex (24 HR) [Depakote ER (24 HR)] 1,500 mg PO HS 02/04/18 [History] 3 Allergy/AdvReac Type Severity Reaction Status Date / Time codeine AdvReac Hives Verified 02/04/18 19:13 ROS unobtainable: other (Attempted to review systems, however patient un- cooperative. ) All Systems Review: The remainder of the systems were reviewed and are negative - Cardiovascular Cardiovascular: as per HPI Physical Examination Vital Signs, Last 4 Hours Temp Pulse Resp BP Pulse Ox 02/05/18 09:15 98.7 F 62 19 93/60 90 02/05/18 08:23 98.7 F 62 19 93/60 90 02/05/18 08:13 98.3 F 88 14 112/62 93 General: Other (Awake upon enetering room. Subsequently, patient closed eyes and refused to answer further questions. Limited physical assessment completed due to patient's aggressive behavior. ) HEENT: Atraumatic, Normocephaly, Mucus Membranes Moist Neuro: Other (Alert upon entering room, however refused to answer further questions. ) Abdomen: Soft, Non-Tender Skin: No rashes noted on visualized skin Musculoskeletal: No Chest Wall Tenderness Extremities: No Clubbing, No Cyanosis, No Edema, Normal Pulses Results 02/05/18 01:40 02/05/18 01:40 Lab Results Impressions Chest X-Ray 02/04/18 15:36 IMPRESSION: Stable exam. No acute cardiopulmonary findings. D/ / Glenna Hardy MD / Glenna Hardy MD Interpreting Provider: Glenna Hardy MD Cervical Spine CT 02/04/18 15:37 IMPRESSION: No acute abnormality of the cervical spine. D/ / Naina Foster Cha, MD / Naina Foster Cha, MD Interpreting Provider: Naina Foster Cha, MD Head CT 02/04/18 15:37 IMPRESSION: No acute intracranial abnormality. D/ / Niranjan Sherwood MD / Niranjan Sherwood MD Interpreting Provider: Niranjan Sherwood MD Active Medications Heparin Sodium (Porcine) (Heparin) 4,000 unit IVP Q6HR PRN PRN Reason: SEE COMMENTS Stop: 08/06/18 17:40 Heparin Sodium (Porcine) (Heparin) 2,000 unit IVP Q6H PRN PRN Reason: SEE COMMENTS Stop: 08/06/18 17:40 Heparin Sodium/Dextrose (Heparin 25,000 Unit/500 Ml D5w) 25,000 unit in 500 mls @ 19.976 mls/hr IVC .Q24H LEONARDO; 12 UNIT/KG/HR PRN Reason: Protocol Stop: 08/06/18 17:46 Last Titration: 02/05/18 02:33 Dose: 11.95 unit/kg/hr, 19.9 mls/hr Lactated Ringer's (Lactated Ringers) 1,000 mls @ 125 mls/hr IVC .Q8H LEONARDO Stop: 02/05/18 10:44 Last Admin: 02/05/18 10:14 Dose: 125 mls/hr Valproic Acid 500 mg/ Sodium (Chloride) 105 mls @ 100 mls/hr IVPB Q8HR LEONARDO Stop: 08/07/18 00:01 Last Admin: 02/05/18 10:12 Dose: 100 mls/hr Thiamine HCl 100 mg/ Folic Acid 1 mg/ Multivitamins 10 ml / Sodium Chloride 511.2 mls @ 85.2 mls/hr IVPB DAILY@1800 LEONARDO Stop: 02/07/18 23:59 Lorazepam (Ativan) 1 mg IVP Q1H PRN PRN Reason: Alcohol Withdrawal Stop: 08/07/18 07:44 Lorazepam (Ativan) 2 mg IVP Q4HR PRN PRN Reason: CIWA Score of 10-21 Stop: 08/07/18 07:44 Last Admin: 02/05/18 09:43 Dose: 2 mg Lorazepam (Ativan) 4 mg IVP Q4HR PRN PRN Reason: CIWA Score of 22-45 Stop: 08/07/18 07:44 Naloxone HCl (Narcan) 0.4 mg IVP Q2MIN PRN PRN Reason: SEE COMMENTS Stop: 08/06/18 18:35 Laboratory Tests 02/04/18 02/04/18 02/04/18 15:36 15:36 20:55 Hgb Creatinine Troponin I 0.81 H* 4.19 H* U Benzodiazepines Scrn Positive H U Marijuana (THC) Screen Positive H Ethyl Alcohol 10 H 02/05/18 02/05/18 02/05/18 01:40 01:40 01:40 Hgb 14.0 Creatinine 1.18 Troponin I 6.19 H* U Benzodiazepines Scrn U Marijuana (THC) Screen Ethyl Alcohol - Imaging and Cardiology Chest Xray: report reviewed Echo: report reviewed - EKG Interpretation EKG results cardiology: personally reviewed (ECG with SR, HR 95.), other ( Telemetry reviewed with average HR previous 12 hours noted to be 74, SR. PVCs and PACs noted. Not currently wearing telemetry, due to patient keep ripping it off.) Consult Discharge Plan - Plan Referrals: NONE,PCP [Primary Care Provider] -
[2018-02-05 10:56] LABS: Troponin I 2.65 ng/mL (< 0.04)
[2018-02-05 11:30] VITALS: BP 135/75
[2018-02-05] MEDS ORDERED: *HR* Enoxaparin 80 MG/0.8 ML SYRINGE SQ SCH (12:00)
--- NOTE | 2018-02-05 13:55 | Event Note ---
Date of Encounter: 02/05/18 Time of Encounter: 13:00 67-year-old male with past medical history of seizures, hypertension, hyperlipidemia is admitted breakthrough seizure and troponin elevation in the setting of substance abuse. Initially, he remained confused and combative, requiring 4-point restraint. Patient was heavily medicated with IV ativan since the admission. In the afternoon, when he woke up, he was completely alert and oriented and he understood why he was admitted in the hospital. He knows that he was admitted for seizure and when I explained to him that he is also admitted for NSTEMI, he verbalized understanding of the diagnosis and implication of not treating, including worsening cardiac perfusion and . This conversation was witnessed by the nurses and the sitter and there was no basis to submit pink slip based on his full understanding of this medical conditions and possible consequences. He left AMA thereafter.
[2018-02-05] MEDS ORDERED: Thiamine (B-1) 100 MG, Folic Acid 1 MG, MVI, adult with vitamin K 10 ML in 0.9 % Sodi... IVPB SCH (18:00)
[2018-02-05] MEDS ORDERED: Divalproex (24 HR) 500 MG TABLET PO SCH (21:00)
[2018-02-06] MEDS ORDERED: Aspirin Enteric Coated 81 MG Tablet PO SCH (09:00)
--- NOTE | 2018-02-09 15:44 | Electrocardiograph Report ---
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
--- NOTE | 2018-02-09 15:47 | Electrocardiograph Report ---
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
== END 2018-02-05 16:30 | disposition left against medical advice (07) ==
LOC: 2ANU 15:24 → EMEROOARM 15:24 → SUATTDRO 21:23 → 2ANU 22:36
PROVIDERS: ADMIT Family Medicine; ATTEND Internal Medicine

== ENCOUNTER 2019-07-15 04:14 | Observation (INO) ==
[2019-07-15] MEDS ORDERED: Isovue-370 500 ML BOTTLE IVP ONE ×2 (04:53→05:32)
[2019-07-15 04:56] LABS: Hematocrit 43.1 % (37.5-50.1); Hemoglobin 14.7 g/dL (12.9-16.9); Mean Corpuscular HGB Conc 34.1 g/dL (31.6-35.5); Mean Corpuscular Hemoglobin 34.1 pg (28.0-33.3); Mean Platelet Volume 9.8 fL (9.4-12.4); Platelet Count 237 K/mcL (140-400); Red Blood Count 4.31 M/mcL (4.19-5.50); Red Cell Distribution Width 12.1 % (11.5-14.5); White Blood Count 9.8 K/mcL (4.3-11.1)
[2019-07-15 05:02] LABS: INR 1.1; Prothrombin Time 12.6 Seconds (9.4-12.1)
[2019-07-15 05:05] LABS: Activated Partial Thrombo Time 30.1 Seconds (26.0-36.0)
[2019-07-15] MEDS ORDERED: Aspirin 81 MG TAB.CHEW PO ONE (05:09)
[2019-07-15 05:26] LABS: BUN/Creatinine Ratio 27 (6-26); Blood Urea Nitrogen 28 mg/dL (8-23); Calcium 9.8 mg/dL (8.6-10.3); Carbon Dioxide 25 mEq/L (23-29); Chloride 102 mEq/L (98-107); Glucose 100 mg/dL (70-105); Osmolality,Calculated 294 (280-300); Potassium 4.6 mEq/L (3.5-5.1); Sodium 139 mEq/L (136-145); Troponin I 1.08 ng/mL (< 0.04); eGFR For African Americans > 60 (> 60); eGFR For Non-African Americans > 60 (> 60)
[2019-07-15] MEDS ORDERED: Gadolinium Contrast Agent (WT Based) IV PRN (07:17)
[2019-07-15] MEDS ORDERED: Naloxone 0.4 MG/ML INJ IVP PRN (13:03)
[2019-07-15] MEDS ORDERED: *HR* Heparin 5,000 UNIT/ML VIAL IVP ONE (13:18)
[2019-07-15] MEDS ORDERED: *HR* Heparin 5,000 UNIT/ML VIAL IVP PRN ×2 (13:18)
[2019-07-15] MEDS ORDERED: Nitroglycerin 0.4 MG TAB.SUBL SL PRN (13:18)
[2019-07-15] MEDS ORDERED: Heparin 25,000 UNIT/250 ML D5W 25,000 UNIT/250 ML IV.SOLN IVC SCH (13:30)
[2019-07-15 14:57] LABS: Hematocrit 48.1 % (37.5-50.1); Mean Corpuscular HGB Conc 34.1 g/dL (31.6-35.5); Mean Corpuscular Volume 99.8 fL (83.0-100.0); Mean Platelet Volume 10.2 fL (9.4-12.4); Platelet Count 266 K/mcL (140-400); Red Blood Count 4.82 M/mcL (4.19-5.50); Red Cell Distribution Width 12.1 % (11.5-14.5); White Blood Count 8.8 K/mcL (4.3-11.1)
[2019-07-15 15:58] LABS: Hemoglobin 16.4 g/dL (12.9-16.9)
[2019-07-15 16:44] LABS: INR 1.2; Prothrombin Time 13.9 Seconds (9.4-12.1)
[2019-07-15 16:46] LABS: Heparin anti-factor XA UFH 1.15 IU/mL (0.30-0.70)
[2019-07-15] MEDS: Divalproex (24 HR) 500 MG TABLET PO SCH (22:09)
[2019-07-15 22:50] VITALS: BP 118/64
[2019-07-16 02:02] LABS: Hematocrit 39.1 % (37.5-50.1); Hemoglobin 13.2 g/dL (12.9-16.9); Mean Corpuscular HGB Conc 33.8 g/dL (31.6-35.5); Mean Corpuscular Hemoglobin 34.1 pg (28.0-33.3); Mean Platelet Volume 10.4 fL (9.4-12.4); Platelet Count 199 K/mcL (140-400); Red Blood Count 3.87 M/mcL (4.19-5.50); Red Cell Distribution Width 12.3 % (11.5-14.5); White Blood Count 7.6 K/mcL (4.3-11.1)
[2019-07-16 02:18] LABS: BUN/Creatinine Ratio 21 (6-26); Blood Urea Nitrogen 20 mg/dL (8-23); Calcium 9.1 mg/dL (8.6-10.3); Carbon Dioxide 28 mEq/L (23-29); Chloride 104 mEq/L (98-107); Glucose 84 mg/dL (70-105); Osmolality,Calculated 286 (280-300); Potassium 4.3 mEq/L (3.5-5.1); Sodium 137 mEq/L (136-145); eGFR For African Americans > 60 (> 60); eGFR For Non-African Americans > 60 (> 60)
[2019-07-16] MEDS: Divalproex (24 HR) 500 MG TABLET PO SCH (08:49)
[2019-07-16] MEDS ORDERED: Aspirin 81 MG TAB.CHEW PO SCH (09:00)
== END 2019-07-16 10:11 | disposition home or self-care (01) ==
LOC: EMEROOARM 04:14 → 3BNU 04:14 → SUATTDRO 12:04 → 3BNU 12:52
PROVIDERS: ADMIT Internal Medicine; ATTEND Internal Medicine